=== PATIENT | male | born 1995 | race Two or more races ===

== ENCOUNTER 2022-09-18 14:18 | Emergency (ER) | payer MEDICAID, OTHER ==
[~2022-09-18] VITALS: Ht 167.6 cm; Wt 59.0 kg
[2022-09-18] MEDS ORDERED: traMADol HCL 50 MG TAB PO ONE (14:30)
[2022-09-18 16:42] VITALS: BP 125/79
== END 2022-09-18 16:04 ==
LOC: EDBD 14:18 → ER 14:18
DX: S33.5XXA Sprain of ligaments of lumbar spine, initial encounter (principal); M79.604 Pain in right leg; F17.210 Nicotine dependence, cigarettes, uncomplicated; X58.XXXA Exposure to other specified factors, initial encounter; Y93.89 Activity, other specified; Y92.89 Other specified places as the place of occurrence of the external cause; Y99.8 Other external cause status
CPT/HCPCS: 72131

== ENCOUNTER 2024-09-26 18:30 | Emergency (ER) | payer MEDICAID ==
[~2024-09-26] VITALS: Ht 175.3 cm; Wt 65.5 kg
[2024-09-26 18:37] VITALS: BP 113/70; PULSE 117; RESP 15; TEMP 99; O2SAT 96
[2024-09-26 19:12] LABS: Basophils # (auto) 0 10 ^3/uL (0-0.2); Basophils % (auto) 0.6 % (0.0-2.0); Eosinophils # (auto) 0.1 10 ^3/uL (0-0.8); Eosinophils % (auto) 0.9 % (0.0-7.0); Hematocrit 44.2 % (41.0-53.0); Hemoglobin 15.3 g/dL (13.5-17.5); Lymphocytes # (auto) 3.2 10 ^3/uL (0.4-5.4); Lymphocytes % (auto) 39.9 % (10.0-50.0); Mean Corpuscular Hemoglobin 28.4 pg (28.0-32.0); Mean Corpuscular Hgb Conc. 34.6 g/dL (32.0-36.0); Mean Corpuscular Volume 82.1 fL (80.0-100.0); Monocytes # (auto) 0.7 10 ^3/uL (0-1.3); Monocytes % (auto) 8.7 % (0.0-12.0); Neutrophils % (auto) 49.9 % (37.0-80.0); Nucleated Red Blood Cells % 0.4 %; Platelet Count (auto) 279 10^3/uL (140-450); Red Blood Cells 5.39 10^6/uL (4.5-5.90); Red Cell Distribution Width 14.1 % (11.8-14.3); White Blood Cell 8.1 10^3/uL (4.4-10.8)
[2024-09-26 19:21] LABS: Chloride 106 mmol/L (98-107); Sodium 140 mmol/L (136-145)
[2024-09-26 19:22] LABS: Anion Gap 8 (5-15); Carbon Dioxide 26 mmol/L (20-31)
[2024-09-26 19:25] LABS: Potassium 3.4 mmol/L (3.5-5.1)
[2024-09-26 19:27] LABS: BUN/Creatinine Ratio 7.6 (10.0-20.0); Blood Urea Nitrogen 9 mg/dL (9-23); Lipase 29 U/L (12-53)
[2024-09-26 19:28] LABS: Glucose 110 mg/dL (74-106)
--- NOTE | 2024-09-26 21:18 | ED.PDOC ---
GI ASSESSMENT HPI Comments 29 yo male w history of methamphetamine use (last used prior to arrival) here with c/o generalized abdominal pain and constipation x2 days. Still has a good appetite. Last ate a meal prior to arrival. No nausea, vomiting, diarrhea, fevers, or chills. No trauma. No rashes. No other pain or symptoms. States he was just released from [facility] earlier today. Chief Complaint: Abdominal Pain Time Seen by MD: 18:35 Primary Care Provider: NONE Allergies: Coded Allergies: Penicillins (Verified Allergy, Severe, 09/26/24) Mode of Arrival: Ambulatory Past Medical History PAST MEDICAL HISTORY: Denies Surgical History: Denies all surgeries Family History Family History: Unknown Social History Smoker: Cigarettes Alcohol: Occasionally Drugs: Denies Drug Use Lives In: Home Physical Exam General Appearance: No Apparent Distress, Normal HEENT: Normal ENT Inspection, Pharynx Normal, TMs Normal Neck: Full Range of Motion, Non-Tender, Normal, Normal Inspection Respiratory: Chest Non-Tender, Lungs Clear, No Accessory Muscle Use, No Respiratory Distress, Normal Breath Sounds Cardiovascular: No Edema, No JVD, No Murmur, No Gallop, Normal Peripheral Pulses, Regular Rate/Rhythm Breast Exam: Deferred Gastrointestinal: No Organomegaly, Non Tender, No Pulsatile Mass, Normal Bowel Sounds, Soft Genitalia: Deferred Pelvic: Deferred Rectal: Deferred Extremities: No calf tenderness, Normal capillary refill, Normal inspection, Normal range of motion, Non-tender, No pedal edema Musculoskeletal : Apperance: Normal Neurologic: Alert, game programer II-XII nml as Tested, No Motor Deficits, Normal Affect, Normal Mood, No Sensory Deficits Cerebellar Function: Normal Reflexes: Normal Skin: Dry, Normal Color, Warm Lymphatic: No Adenopathy Was a procedure done? Was a procedure done?: No GI differential Dx Differential Diagnosis: Other (Indigestion, constipation, small-bowel obstructi on, large bowel obstruction, appendicitis, cholecystitis, pancreatitis, incarcerated hernia, testicular torsion) X-Ray, Labs, Meds, VS Vital Signs Date Time Temp Pulse Resp B/P (MAP) Pulse Ox O2 Delivery O2 Flow Rate FiO2 09/26/24 18:37 99.0 117 15 113/70 (84) 96 99.0 Lab Test 09/26/24 18:53 Range/Units White Blood Count 8.1 4.4-10.8 10^3/uL Red Blood Count 5.39 4.5-5.90 10^6/uL Hemoglobin 15.3 13.5-17.5 g/dL Hematocrit 44.2 41.0-53.0 % Mean Corpuscular Volume 82.1 80.0-100.0 fL Mean Corpuscular Hemoglobin 28.4 28.0-32.0 pg Mean Corpuscular Hemoglobin Concent 34.6 32.0-36.0 g/dL Red Cell Distribution Width 14.1 11.8-14.3 % Platelet Count 279 140-450 10^3/uL Mean Platelet Volume 7.9 6.9-10.8 fL Neutrophils (%) (Auto) 49.9 37.0-80.0 % Lymphocytes (%) (Auto) 39.9 10.0-50.0 % Monocytes (%) (Auto) 8.7 0.0-12.0 % Eosinophils (%) (Auto) 0.9 0.0-7.0 % Basophils (%) (Auto) 0.6 0.0-2.0 % Neutrophils # (Auto) 4.0 1.6-8.6 10 ^3/uL Lymphocytes # (Auto) 3.2 0.4-5.4 10 ^3/uL Monocytes # (Auto) 0.7 0-1.3 10 ^3/uL Eosinophils # (Auto) 0.1 0-0.8 10 ^3/uL Basophils # (Auto) 0 0-0.2 10 ^3/uL Nucleated Red Blood Cells 0.4 % Sodium Level 140 136-145 mmol/L Potassium Level 3.4 L 3.5-5.1 mmol/L Chloride Level 106 98-107 mmol/L Carbon Dioxide Level 26 20-31 mmol/L Anion Gap 8 5-15 Blood Urea Nitrogen 9 9-23 mg/dL Creatinine 1.19 0.700-1.30 mg/dL Glomerular Filtration Rate Calc 86 >90 mL/min BUN/Creatinine Ratio 7.6 L 10.0-20.0 Serum Glucose 110 H 74-106 mg/dL Calcium Level 10.0 8.7-10.4 mg/dL Lipase 29 12-53 U/L X-Ray, Labs, Meds, VS Comment 29-year-old male with history of recent methamphetamine use here today with primary complaint of generalized abdominal pain. Vital signs notable for tachycardia in the setting of recent methamphetamine use prior to arrival prior to arrival but otherwise unremarkable. Workup overall reassuring without evidence of significant electrolyte abnormality. Doubt pancreatitis given patient has no abdominal tenderness to palpation on exam and has a normal lipase level. Doubt cholecystitis/biliary colic because the patient states that the pain is not related to eating. Doubt obstruction given patient is still tolerating a regular diet, exam without evidence of abdominal tenderness to palpation, and patient still passing small hard bowel movements. Doubt per forated ulcer given patient does not have significant history of reflux. A provide the patient with reassurance and strict return precautions for worsening abdominal pain, nausea/vomiting, fevers, and testicular pain, dysuria, hematuria. Patient expressed understanding and was given a meal to eat and was subsequently discharged home in stable condition ambulating with a steady gait and in no distress. Patient was instructed to follow up with his primary care provider within 2-3 days for re-evaluation. Time of 1ST Reevaluation: 19:54 Reevaluation 1ST: Improved Patient Education/Counseling: Diagnosis, Treatment, Prognosis, Need For Follow Up Family Education/Counseling: No Family Present Departure 1 Departure Time of Disposition: 21:09 Impression: Primary Impression: Abdominal pain Additional Impressions: Methamphetamine use Constipation Disposition: 01 HOME / SELF CARE / HOMELESS Condition: Stable Discharged With: Self Critical Care Note Critical Care Time?: No Stability Stability form required: No Heart Score Heart Score: Heart Score Response (Comments) Value History N/A 0 EKG N/A 0 Age N/A 0 Risk Factors N/A 0 Troponin N/A 0 Total 0 AURELIA ONEAL MD September 26, 2024 21:18
== END 2024-09-26 21:50 | disposition home or self-care (01) ==
LOC: ER 18:30
DX: K59.00 Constipation, unspecified (principal); F15.90 Other stimulant use, unspecified, uncomplicated; F17.210 Nicotine dependence, cigarettes, uncomplicated; Z88.0 Allergy status to penicillin
CPT/HCPCS: 36415; 80048; 83690; 85025